=== PATIENT | male | born 1960 | race Two or more races ===

== ENCOUNTER 2022-02-15 06:41 | Emergency (ER) | payer OTHER ==
[~2022-02-15] VITALS: Ht 180.3 cm; Wt 86.2 kg
[2022-02-15] MEDS ORDERED: GLUMETZA1000 MG (06:58)
== END 2022-02-15 12:10 | disposition home or self-care (01) ==
LOC: ER 06:41
DX: U07.1 COVID-19 (principal); E11.9 Type 2 diabetes mellitus without complications; Z79.899 Other long term (current) drug therapy

== ENCOUNTER 2022-02-18 08:31 | Outpatient (CLI) | payer OTHER ==
[~2022-02-18 08:31] MED LIST: GLUMETZA1000 MG
== END 2022-02-18 09:10 | disposition home or self-care (01) ==
LOC: ASH CLINIC 08:31
PROVIDERS: ATTEND Emergency Medicine
DX: U07.1 COVID-19 (principal)